=== PATIENT | male | born 1955 | race Caucasian/White ===

== ENCOUNTER → 2016-09-12 | Outpatient (CLI) | payer BC ==
[~2016-09-12] MED LIST: ACULAR10 ML OD; ASPIRIN PO; DICLOFENAC PO; ERYTHROMYCIN O3.5 GM OD; ESCITALOPRAM OX10 MG PO
--- NOTE | ~2016-09-12 | CT57 ---
[facility] A Service of [facility] & [facility] RADIOLOGY TEXT RESULTS PATIENT: OLGA TARIQ LOCATION: [facility] : 59 UNIT #: [id number] AGE: [address]: Laci Figueroa MD SEX: M ORDER DR: [id number] [address] [id number] O MR#: [id number] Acc #: [id number] NAME: OLGA TARIQ : 1955 SEX: M STUDY DATE/TIME: 09/12/2016 8:23 UNIT: [facility] ROOM: STUDY DESCRIPTION: CT Chest Wo Cont Attending Physician: Laci Figueroa M.D. Referring Physician: Laci Figueroa M.D. Ordering Physician: Laci Figueroa M.D. Primary Care Physician: Laci Figueroa M.D. MEDICAL IMAGING REPORT This report is preliminary unless electronic signature is present. EXAM CT of the chest without contrast INDICATION Lung cancer screening examination. Patient has a 88-[id number]-[id number] smoking history. He has no complaints currently. COMPARISON August 03, 2015. TECHNIQUE Axial CT images were obtained from the thoracic inlet through the dome of the diaphragm. No intravenous contrast material was administered. This CT examination was performed with one or more of the following radiation dose reduction techniques: automatic exposure control, adjustment of mA and/or kV according to patient size, and iterative reconstruction. FINDINGS Area of nodularity is identified within the left lower lobe that really has a more ground glass appearance. It is unchanged when compared to the exam from August 03, 2015. No new pulmonary nodules or masses are seen. Overall, patient does have some mild mosaic attenuation which may reflect some air trapping. Background emphysematous changes are again noted. The thyroid gland, trachea and esophagus appear unremarkable. There is no pleural or pericardial effusion. Mediastinal lymph nodes are stable in size. Images through the upper abdomen do not demonstrate any acute abnormalities. Patient is again noted to have coronary artery calcifications. There is also mild aneurysmal dilatation of the descending thoracic aorta measuring up to about 3.1 cm in size again not significantly changed when compared to the prior study. No aggressive osseous abnormalities are seen. IMPRESSION [facility] A Service of [facility] & [facility] RADIOLOGY TEXT RESULTS PATIENT: OLGA TARIQ LOCATION: [facility] : 59 UNIT #: [id number] AGE: [address]: Laci Figueroa MD SEX: M ORDER DR: 1. The patient has a predominantly ground glass nodule seen within the left lower lobe measuring about 1 cm in size. This is unchanged when compared to the prior examination. It is favored to be benign. Follow up annual screening examination in 12 months is recommended. 2. Mild aneurysmal dilatation of the proximal descending thoracic aorta measuring up to about 3.1 cm is unchanged when compared to last year's study. 3. Coronary artery calcifications. Lung-RADS 2S Dictated by... Joseline Hill M.D. THIS IS AN ELECTRONICALLY VERIFIED REPORT Joseline Hill M.D. at 09/12/2016 3:54 PM AFF/jeanne TD: 09/12/2016 12:55 JOB #: [id number] MEDICAL IMAGING REPORT Page 1 of 1
== END | disposition home or self-care (01) ==
LOC: SCT 08:12
DX: F17.210 Nicotine dependence, cigarettes, uncomplicated (principal); R91.1 Solitary pulmonary nodule; I71.2 Thoracic aortic aneurysm, without rupture; I25.10 Atherosclerotic heart disease of native coronary artery without angina pectoris
CPT/HCPCS: 71250